=== PATIENT | male | born 1960 | race Caucasian/White ===

== ENCOUNTER 2018-08-04 14:34 | Emergency (ER) | payer SELFPAY ==
[2018-08-04] MEDS ORDERED: NA CHLORIDE 0.9% 1,000 ML ONE (15:24)
[2018-08-04 15:45] LABS: Absolute Lymphocytes (CBC) 2.5 K/uL (0.7-4.9); Absolute Neutrophil 4.9 K/uL (1.8-8.0); Basophils % 0.6 % (0-1.3); Eosinophils % 1.3 % (0-4.4); Hematocrit 43.3 % (39.6-49.0); Lymphocytes % 29.5 % (15.3-44.8); MPV 9.2 fL (7.6-11.3); Monocytes % 11.8 % (3.3-12.3); RBC Red Blood Cell Count 4.61 M/uL (4.33-5.43)
[2018-08-04 16:01] LABS: ALT/SGPT 21 U/L (12-78); AST/SGOT 15 U/L (15-37); Albumin 3.6 g/dL (3.4-5.0); Alkaline Phosphatase 79 U/L (45-117); BUN Blood Urea Nitrogen 13 mg/dL (7-18); Bicarbonate 27 mmol/L (21-32); Bilirubin Direct < 0.1 mg/dL (0-0.2); Bilirubin Total 0.3 mg/dL (0.2-1.0); Glucose Level 90 mg/dL (74-106); Lipase 185 U/L (73-393); Magnesium 2.4 mg/dL (1.8-2.4); NT PRO-BNP 138 pg/mL (<125); Protein, Total 7.3 g/dL (6.4-8.2); Sodium Level 141 mmol/L (136-145); Troponin (Emerg Dept Use Only) < 0.02 ng/mL (0.0-0.045)
[2018-08-04] MEDS ORDERED: FOLIC ACID 5 MG/ML VIAL ONE (16:51)
[2018-08-04] MEDS ORDERED: NA CHLORIDE 0.9% 50 ML IV ONE (16:53)
--- NOTE | 2018-08-04 17:18 | EKG ---
Test Date: 2018-08-04 Test Time: 14:53:56 Chamber Worker: FRANCINE MEASUREMENT RESULTS: Intervals: Rate: 61 OH: 162 QRSD: 86 QT: 426 QTc: 428 Tuttle: P: 32 OH: 162 QRS: 62 T: 50 INTERPRETIVE STATEMENTS: Normal sinus rhythm Normal ECG No previous ECG available for comparison Electronically Signed On 08-04-18 17:17:11 CDT by Bird Seymour
--- NOTE | 2018-08-04 17:55 | RAD REPORT ---
EXAM DESCRIPTION: MRI - Brain Wo Cont - 08/04/2018 5:34 pm CLINICAL HISTORY: Numbness COMPARISON: none TECHNIQUE: Axial, sagittal, and coronal magnetic images of the brain were obtained. Contrast was not requested FINDINGS: No significant abnormal signal is present within the brain. Diffusion-weighted/ADC mapping does not reveal evidence of acute infarction. The ventricles are normal caliber. An extra-axial fluid collection is not present The sinuses and mastoids are clear. IMPRESSION: No acute abnormality displayed
--- NOTE | 2018-08-04 18:05 | RAD REPORT ---
EXAM DESCRIPTION: MRI - C Spine Wo Cont - 08/04/2018 5:35 pm CLINICAL HISTORY: Bilateral arm numbness COMPARISON: None TECHNIQUE: Magnetic resonance imaging of the cervical spine was obtained with coronal and sagittal r econstruction FINDINGS: C2-3 unremarkable Disc bulge and osteophytes C3-4 result in narrowing of the thecal sac 9.5 millimeters. Moderate to ma rked narrowing of the left neural foramina and moderate narrowing the right neural foramina Disc bulge and osteophytes C4-5. Mild narrowing of the thecal sac. Moderate to marked narrowing left neural foramina. Moderate narrowing the right neural foramina Disc bulge and osteophytes narrow thecal sac at C5-6 to 8 millimeters. Moderate narrowing of the left and mild narrowing of the right neural foramina Disc bulge and osteophytes narrow the thecal sac a 9 millimeters C6-7. Neural foramina patent C7-T1 demonstrates mild spondylosis The spinal cord is normal caliber and signal. No abnormal signal within the bones is noted. IMPRESSION: Spondylosis resulting in mild central spinal stenosis C3-4, C5-6 and C6-7. Spondylosis results in a moderate to marked foraminal stenosis C3-4 and C5-6
[2018-08-04 18:19] LABS: Urine Blood NEGATIVE (NEG); Urine Glucose NEGATIVE (NEG); Urine Protein NEGATIVE (NEG); Urine Specific Gravity 1.015 (1.005-1.030); Urine pH 7.5 (5.0-7.0)
--- NOTE | 2018-08-04 18:19 | RAD REPORT ---
EXAM DESCRIPTION: Alpesh Single View08/04/2018 3:11 pm CLINICAL HISTORY: cough COMPARISON: none FINDINGS: The lungs appear clear of acute infiltrate. The heart is normal size IMPRESSION: No acute abnormalities displayed
--- NOTE | 2018-08-04 18:34 | ER ---
Nurse's Notes [facility] Name: Logan Ma Age: 58 yrs Sex: Male : 1960 Arrival Date: 08/04/2018 Time: 14:37 Bed 26 Private MD: Diagnosis: Chest pain, unspecified Presentation: 08/04 14:53 Presenting complaint: Patient states: Patient reports intermittent tingling and ae4 numbness starting at his left shoulder and radiating to chest. Transition of care: patient was not received from another setting of care. Onset of symptoms was August 04, 2018 at 10:00. Risk Assessment: Do you want to hurt yourself or someone else? Patient reports no desire to harm self or others. Initial Sepsis Screen: Does the patient meet any 2 criteria? No. Patient's initial sepsis screen is negative. Does the patient have a suspected source of infection? No. Patient's initial sepsis screen is negative. Care prior to arrival: None. 14:53 Acuity: JAYDA 3 ae4 14:53 Method Of Arrival: Ambulatory ae4 Triage Assessment: 14:57 Pain: Denies pain. ae4 Historical: - Allergies: 14:56 No Known Allergies; ae4 - Home Meds: 14:56 None [Active]; ae4 - PMHx: 14:56 None; ae4 - PSHx: 14:56 shoulder surgery; ae4 - Immunization history:: Adult Immunizations up to date. - Social history:: Smoking status: Patient/guardian denies using tobacco. - Ebola Screening: : Patient negative for fever greater than or equal to 101.5 degrees Fahrenheit, and additional compatible Ebola Virus Disease symptoms Patient denies exposure to infectious person Patient denies travel to an Ebola-affected area in the 21 days before illness onset. - Family history:: not pertinent. Screenin:57 Abuse screen: Denies threats or abuse. Nutritional screening: No deficits noted. ae4 Tuberculosis screening: No symptoms or risk factors identified. Fall Risk None identified. Assessment: 14:57 General: Appears in no apparent distress. comfortable, Behavior is calm, cooperative. ae4 Pain: Denies pain. Neuro: Level of Consciousness is awake, alert, obeys commands, Oriented to person, place, time, situation, Appropriate for age. Cardiovascular: Heart tones S1 S2 present Patient's skin is warm and dry. Rhythm is regular. Respiratory: Airway is patent Respiratory effort is even, unlabored, Respiratory pattern is regular, symmetrical, Breath sounds are clear bilaterally. GI: No signs and/or symptoms were reported involving the gastrointestinal system. : No signs and/or symptoms were reported regarding the genitourinary system. EENT: No signs and/or symptoms were reported regarding the EENT system. Derm: Skin is pink, warm \T\ dry. Musculoskeletal: No signs and/or symptoms reported regarding the musculoskeletal system. No visible swelling to JACK lower extremities. 15:56 Reassessment: Patient appears in no apparent distress at this time. Patient and/or ca1 family updated on plan of care and expected duration. Pain level reassessed. Patient is alert, oriented x 3, equal unlabored respirations, skin warm/dry/pink. 17:28 Reassessment: patient sent to MRI. mg2 17:57 Reassessment: patient sent back from mri. mg2 18:47 Reassessment: patient up for discharge once 2nd troponin came back negative. mg2 21:00 Reassessment: Patient appears in no apparent distress at this time. Patient is alert, ca1 oriented x 3, equal unlabored respirations, skin warm/dry/pink. Vital Signs: 14:52 BP 151 / 86; Pulse 62; Resp 19; Temp 98.4(O); Pulse Ox 99% on R/A; Weight 92.99 kg (R); ae4 15:56 BP 121 / 94; Pulse 74; Resp 19 S; Pulse Ox 100% on R/A; ca1 17:57 Pulse 87; Resp 18; Pulse Ox 98% on R/A; Pain 0/10; mg2 19:00 BP 142 / 87; Pulse 69; Resp 18; Temp 98; Pulse Ox 100% on R/A; Pain 0/10; mg2 21:00 BP 107 / 80; Pulse 61; Resp 18; Pulse Ox 98% ; ca1 NIH Stroke Scale Scores: 16:32 NIHSS Score: 0 masoud ED Course: 14:37 Patient arrived in ED. tw3 14:52 Christian Christian, RN is Primary Nurse. ae4 14:54 Triage completed. ae4 14:56 Placed in gown. Bed in low position. Call light in reach. Side rails up X 1. Adult w/ ae4 patient. campus monitor on. Pulse ox on. NIBP on. Warm blanket given. 14:57 Geremias Lam MD is Attending Physician. masoud 14:57 Arm band placed on right wrist. EKG completed in triage. Results shown to MD. ae4 15:11 XRAY Chest (1 view) In Process Unspecified. EDMS 15:24 Initial lab(s) drawn, by me, sent to lab. Inserted saline lock: 20 gauge in left lt1 antecubital area, using aseptic technique. 15:56 No provider procedures requiring assistance completed. ca1 17:10 C Spine Wo Cont In Process Unspecified. EDMS 17:11 Patient moved to MRI via wheelchair. ka 17:31 Brain Wo Cont MRI In Process Unspecified. EDMS 17:47 MRI completed. Patient tolerated well. Patient moved back from MRI. ka 18:56 Dannie Humphreys MD is Hospitalizing Provider. masoud 20:34 Attending Physician role handed off by Geremias Lam MD ma2 20:34 Brina Davis MD is Attending Physician. ma2 21:08 IV discontinued, intact, bleeding controlled, No redness/swelling at site. Pressure ca1 dressing applied. Administered Medications: 15:31 Drug: NS 0.9% 1000 ml Route: IV; Rate: 125 ml/hr; Site: left antecubital; mg2 21:02 Follow up: Response: Pt discharged ca1 21:10 Follow up: IV Status: Completed infusion ca1 16:42 Drug: foLIC Acid 1 mg Route: IVPB; Site: left antecubital; mg2 21:09 Follow up: Response: No adverse reaction; IV Status: Completed infusion ca1 18:47 Drug: Aspirin 162 mg Route: PO; mg2 21:01 Follow up: Response: No adverse reaction ca1 19:07 Drug: Lopressor 25 mg Route: PO; mg2 21:01 Follow up: Response: No adverse reaction ca1 19:07 Drug: Lovenox 90 mg Route: Sub-Q; Site: right upper arm; mg2 21:01 Follow up: Response: No adverse reaction ca1 Outcome: 18:33 Discharge ordered by . masoud 18:59 Decision to Hospitalize by Provider. masoud 20:44 Discharge ordered by . ma2 21:08 Discharged to home ambulatory, with significant other. ca1 21:08 Condition: stable 21:08 Discharge instructions given to patient, Instructed on discharge instructions, follow up and referral plans. Demonstrated understanding of instructions, follow-up care. 21:15 Patient left the ED. ca1 NIH Stroke Scale - NIH Stroke Score Date: 08/04/2018 Time: 16:32 Total Score = 0 1a. Level of Consciousness (LOC) - 0(Alert) 1b. Level of Consciousness (LOC) (Year \T\ Age) - 0(Both) 1c. LOC Commands (Open \T\ Closes Eyes/As400 Administrator) - 0(Both) 2. Best Gaze (Lateral Gaze Paresis) - 0(Normal) 3. Visual Field Loss - 0(No visual loss) 4. Facial Palsy - 0(Normal) 5a. Left Arm: Motor (10-second hold) - 0(No drift) 5b. Right Arm: Motor (10-second hold) - 0(No drift) 6a. Left Leg: Motor (5-second hold - always test supine) - 0(No drift) 6b. Right Leg: Motor (5-second hold - always test supine) - 0(No drift) 7. Limb Ataxia (finger/nose \T\ heel/wall - test with eyes open) - 0(Absent) 8. Sensory Loss (pinprick arms/legs/face) - 0(Normal) 9. Best Language: Aphasia (description/naming/reading) - 0(No aphasia) 10. Dysarthria (speech clarity - read or repeat words) - 0(Normal) 11. Extinction and Inattention (visual/tactile/auditory/spatial/personal) - 0(No abnormality) Initials: masoud Signatures: Dispatcher [employer] EDGeremias Pelletier MD MD cha Aguilera, Katelyn ka Wade, Tia tw3 Brina Davis MD MD ma2 Raymond Ivan, FOREST GARG mg2 Denise Braga RN RN ca1 Chiqui Gómez lt1 Christian Christian RN RN ae4 Corrections: (The following items were deleted from the chart) 21:00 21:00 Reassessment: Patient appears in no apparent distress at this time. ca1 Patient and/or family updated on plan of care and expected duration. Pain level reassessed. Patient is alert, oriented x 3, equal unlabored respirations, skin warm/dry/pink. ca1
--- NOTE | 2018-08-04 18:34 | EDPHYS ---
Physician Documentation [facility] Name: Logan Ma Age: 58 yrs Sex: Male : 1960 Arrival Date: 08/04/2018 Time: 14:37 Bed 26 Private MD: ED Physician Brina Davis HPI: 08/04 16:32 This 58 yrs old Male presents to ER via Ambulatory with complaints of masoud Numbness Of Arm, Numbness. 16:32 The patient or guardian complains of decreased range of motion, pain, that is acute. masoud The complaints affect the right bicep, dorsal aspect of right forearm, right tricep and palmar aspect of right forearm, left bicep, dorsal aspect of left forearm, left tricep and palmar aspect of left forearm. Context: The problem was sustained at home. Onset: The symptoms/episode began/occurred. Treatment prior to arrival includes: no previous treatment. Modifying factors: The symptoms are alleviated by nothing. the symptoms are aggravated by nothing. Associated signs and symptoms: The patient has no apparent associated signs or symptoms. The patient has not experienced similar symptoms in the past. Historical: - Allergies: 14:56 No Known Allergies; ae4 - Home Meds: 14:56 None [Active]; ae4 - PMHx: 14:56 None; ae4 - PSHx: 14:56 shoulder surgery; ae4 - Immunization history:: Adult Immunizations up to date. - Social history:: Smoking status: Patient/guardian denies using tobacco. - Ebola Screening: : Patient negative for fever greater than or equal to 101.5 degrees Fahrenheit, and additional compatible Ebola Virus Disease symptoms Patient denies exposure to infectious person Patient denies travel to an Ebola-affected area in the 21 days before illness onset. - Family history:: not pertinent. ROS: 16:32 Constitutional: Negative for fever, chills, and weight loss, Eyes: Negative for injury, masoud pain, redness, and discharge, ENT: Negative for injury, pain, and discharge, Neck: Negative for injury, pain, and swelling, Cardiovascular: Negative for chest pain, palpitations, and edema, Respiratory: Negative for shortness of breath, cough, wheezing, and pleuritic chest pain, Abdomen/GI: Negative for abdominal pain, nausea, vomiting, diarrhea, and constipation, Back: Negative for injury and pain, : Negative for injury, bleeding, discharge, and swelling, MS/Extremity: Negative for injury and deformity, Skin: Negative for injury, rash, and discoloration. 16:32 Neuro: Positive for numbness, of the back, chest, abdomen, right arm and left arm. Exam: 16:32 Constitutional: This is a well developed, well nourished patient who is awake, alert, masoud and in no acute distress. Head/Face: Normocephalic, atraumatic. Eyes: Pupils equal round and reactive to light, extra-ocular motions intact. Lids and lashes normal. Conjunctiva and sclera are non-icteric and not injected. Cornea within normal limits. Periorbital areas with no swelling, redness, or edema. ENT: Nares patent. No nasal discharge, no septal abnormalities noted. Tympanic membranes are normal and external auditory canals are clear. Oropharynx with no redness, swelling, or masses, exudates, or evidence of obstruction, uvula midline. Mucous membranes moist. Neck: Trachea midline, no thyromegaly or masses palpated, and no cervical lymphadenopathy. Supple, full range of motion without nuchal rigidity, or vertebral point tenderness. No Meningismus. Chest/axilla: Normal chest wall appearance and motion. Nontender with no deformity. No lesions are appreciated. Cardiovascular: Regular rate and rhythm with a normal S1 and S2. No gallops, murmurs, or rubs. Normal PMI, no JVD. No pulse deficits. Respiratory: Lungs have equal breath sounds bilaterally, clear to auscultation and percussion. No rales, rhonchi or wheezes noted. No increased work of breathing, no retractions or nasal flaring. Abdomen/GI: Soft, non-tender, with normal bowel sounds. No distension or tympany. No guarding or rebound. No evidence of tenderness throughout. Back: No spinal tenderness. No costovertebral tenderness. Full range of motion. Male : Normal genitalia with no discharge or lesions. Skin: Warm, dry with normal turgor. Normal color with no rashes, no lesions, and no evidence of cellulitis. MS/ Extremity: Pulses equal, no cyanosis. Neurovascular intact. Full, normal range of motion. Neuro: Awake and alert, GCS 15, oriented to person, place, time, and situation. Cranial nerves II-XII grossly intact. Motor strength 5/5 in all extremities. Sensory grossly intact. Cerebellar exam normal. Normal gait. Psych: Awake, alert, with orientation to person, place and time. Behavior, mood, and affect are within normal limits. Vital Signs: 14:52 BP 151 / 86; Pulse 62; Resp 19; Temp 98.4(O); Pulse Ox 99% on R/A; Weight 92.99 kg (R); ae4 15:56 BP 121 / 94; Pulse 74; Resp 19 S; Pulse Ox 100% on R/A; ca1 17:57 Pulse 87; Resp 18; Pulse Ox 98% on R/A; Pain 0/10; mg2 19:00 BP 142 / 87; Pulse 69; Resp 18; Temp 98; Pulse Ox 100% on R/A; Pain 0/10; mg2 21:00 BP 107 / 80; Pulse 61; Resp 18; Pulse Ox 98% ; ca1 NIH Stroke Scale Scores: 16:32 NIHSS Score: 0 masoud MDM: 14:57 Patient medically screened. [facility] 16:37 Data reviewed: vital signs, nurses notes, lab test result(s), EKG, radiologic studies, masoud CT scan, MRI, plain films. 20:37 ED course: patient ended up staying in er for > 3 hrs and got repeated trop and ekg ma2 both wnl, he is hung score of zero no need for further testing, either way the only symptoms he had was left shoulder numbness and neck pain MRI shows no cord compression or any emergent surgical indication, his symptom is resolved. Hospitalis dr. Castillo recommends against further ACS rule out testing such as emergent rent and miscellaneous remittance clerk consult or further trop/ekg testing and i agree with dr. castillo recommendation. i discussed these recommendation with the patient who prefers to go home he will see his pcp tomorrow and he will schedule an appointment with a [place] rent and miscellaneous remittance clerk in 2 days. he will return to er for any new symptoms . 08/04 14:58 Order name: Basic Metabolic Panel [facility] 08/04 14:58 Order name: CBC with Diff [facility] 08/04 14:58 Order name: LFT's [facility] 08/04 14:58 Order name: Magnesium; Complete Time: 16:11 [facility] 08/04 14:58 Order name: NT PRO-BNP; Complete Time: 16:11 [facility] 08/04 14:58 Order name: PT-INR; Complete Time: 16:11 [facility] 08/04 14:58 Order name: Troponin (emerg Dept Use Only); Complete Time: 16:11 [facility] 08/04 14:58 Order name: Lipase; Complete Time: 16:11 [facility] 08/04 15:00 Order name: Basic Metabolic Panel; Complete Time: 16:11 EDPR 08/04 15:00 Order name: CBC with Automated Diff; Complete Time: 16:11 EDPR 08/04 15:00 Order name: Liver (Hepatic) Function; Complete Time: 16:11 EDMS 08/04 17:18 Order name: Urine Dipstick--Ancillary (enter results) 08/04 18:34 Order name: Troponin (emerg Dept Use Only): 640pm; Complete Time: 20:16 [facility] 08/04 14:58 Order name: XRAY Chest (1 view); Complete Time: 18:33 [facility] 08/04 14:58 Order name: EKG; Complete Time: 15:01 [facility] 08/04 14:58 Order name: Cardiac monitoring; Complete Time: 15:26 [facility] 08/04 14:58 Order name: EKG - Nurse/Tech; Complete Time: 15:26 [facility] 08/04 14:58 Order name: IV Saline Lock; Complete Time: 15:25 [facility] 08/04 14:58 Order name: Labs collected and sent; Complete Time: 15:25 [facility] 08/04 14:58 Order name: O2 Per Protocol; Complete Time: 15:25 [facility] 08/04 14:58 Order name: O2 Sat Monitoring; Complete Time: 15:25 [facility] 08/04 14:58 Order name: Urine Dipstick-Ancillary (obtain specimen); Complete Time: 17:29 [facility] 08/04 16:32 Order name: Brain Wo Cont MRI; Complete Time: 18:33 [facility] 08/04 16:38 Order name: C Spine Wo Cont; Complete Time: 18:33 EDMS Administered Medications: 15:31 Drug: NS 0.9% 1000 ml Route: IV; Rate: 125 ml/hr; Site: left antecubital; mg2 21:02 Follow up: Response: Pt discharged ca1 21:10 Follow up: IV Status: Completed infusion ca1 16:42 Drug: foLIC Acid 1 mg Route: IVPB; Site: left antecubital; mg2 21:09 Follow up: Response: No adverse reaction; IV Status: Completed infusion ca1 18:47 Drug: Aspirin 162 mg Route: PO; mg2 21:01 Follow up: Response: No adverse reaction ca1 19:07 Drug: Lopressor 25 mg Route: PO; mg2 21:01 Follow up: Response: No adverse reaction ca1 19:07 Drug: Lovenox 90 mg Route: Sub-Q; Site: right upper arm; mg2 21:01 Follow up: Response: No adverse reaction ca1 Disposition: 08/04/18 20:44 Discharged to Home. Impression: Chest pain, unspecified. - Condition is Stable. - Discharge Instructions: Nonspecific Chest Pain. - Medication Reconciliation Form, Thank You Letter, Antibiotic Education, Prescription Opioid Use form. - Follow up: Private Physician; When: Tomorrow; Reason: Continuance of care. - Notes: seeyour primary care doctor and acardiologist for a stress test in 1-2 days NIH Stroke Scale - NIH Stroke Score Date: 08/04/2018 Time: 16:32 Total Score = 0 1a. Level of Consciousness (LOC) - 0(Alert) 1b. Level of Consciousness (LOC) (Year \T\ Age) - 0(Both) 1c. LOC Commands (Open \T\ Closes Eyes/Screedman) - 0(Both) 2. Best Gaze (Lateral Gaze Paresis) - 0(Normal) 3. Visual Field Loss - 0(No visual loss) 4. Facial Palsy - 0(Normal) 5a. Left Arm: Motor (10-second hold) - 0(No drift) 5b. Right Arm: Motor (10-second hold) - 0(No drift) 6a. Left Leg: Motor (5-second hold - always test supine) - 0(No drift) 6b. Right Leg: Motor (5-second hold - always test supine) - 0(No drift) 7. Limb Ataxia (finger/nose \T\ heel/wall - test with eyes open) - 0(Absent) 8. Sensory Loss (pinprick arms/legs/face) - 0(Normal) 9. Best Language: Aphasia (description/naming/reading) - 0(No aphasia) 10. Dysarthria (speech clarity - read or repeat words) - 0(Normal) 11. Extinction and Inattention (visual/tactile/auditory/spatial/personal) - 0(No abnormality) Initials: masoud Signatures: Dispatcher [employer] EDPR Geremias Lam MD MD cha Alzahri, Mohammad, MD MD ma2 Raymond Ivan, RN RN mg2 Denise Braga RN RN ca1 Christian Christian RN RN ae4 Corrections: (The following items were deleted from the chart) 18:45 18:38 TROPONIN (EMERG DEPT USE ONLY)+[id number].[email or web address].BRZ ordered. [facility] EDPR 18:56 18:33 08/04/2018 18:33 Discharged to Home. Impression: Spinal stenosis, masoud cervical region; Spondylolysis, cervical region. Condition is Stable. Forms are Medication Reconciliation Form, Thank You Letter, Antibiotic Education, Prescription Opioid Use. Follow up: Private Physician; When: 2 - 3 days; Reason: Recheck today's complaints, Continuance of care, Re-evaluation by your physician. Problem is new. Symptoms have improved. [facility] 20:43 18:59 Hospitalization Ordered by Dannie Humphreys MD for Observation. Preliminary ma2 diagnosis is Chest pain, unspecified; Essential (primary) hypertension. Bed requested for Telemetry/MedSurg (Inpatient). Status is Observation. Condition is Stable. Problem is new. Symptoms have improved. UTI on Admission? No. masoud 20:43 20:43 08/04/2018 18:59 Hospitalization Ordered by Dannie Humphreys MD for ma2 Observation. Preliminary diagnosis is Chest pain, unspecified; Essential (primary) hypertension. Bed requested for Telemetry/MedSurg (Inpatient). Status is Observation. Condition is Stable. Problem is new. Symptoms have improved. UTI on Admission? No. ma2 21:15 20:44 08/04/2018 20:44 Discharged to Home. Impression: Chest pain, unspecified. ca1 Condition is Stable. Forms are Medication Reconciliation Form, Thank You Letter, Antibiotic Education, Prescription Opioid Use. Follow up: Private Physician; When: Tomorrow; Reason: Continuance of care. ma2
[2018-08-04] MEDS ORDERED: ASPIRIN EC 81 MG TAB PO ONE (18:53)
[2018-08-04] MEDS ORDERED: ENOXAPARIN 100 MG/ML SYR SQ ONE (19:17)
[2018-08-04] MEDS ORDERED: METOPROLOL TAR 25 MG TAB ONE (19:17)
--- NOTE | 2018-08-04 20:59 | P.CNS ---
Date of Consult: 08/04/18 Reason for Consult: atypical chest pain Requesting Physician: Geremias Lam Chief Complaint: left shoulder, arm and chest numbness History of Present Illness: Mr Ma is a 58 years old male with pretty benign past medical history, he start 2 days ago with tingling in his left shoulder. His symptoms got worse today, and become numbness extended to the chest. He denied nausea, vomiting, SOB, diaphoresis episode. He denied chest pain. He states that after crack his neck, his symptoms started. Lab work revealed normal trop I x 2, EKG sinus rhythm without ST-T abnormalities. At my encounter, his symptoms remain the same without change. Home medications list reviewed: Yes - Past Medical/Surgical History Past Medical History: Reviewed- Non-Contributory Past Surgical History: Reviewed- Non-Contributory - Social History Smoking Status: Never smoker CD- Drugs: No Place of Residence: Home Review of Systems 10-point ROS is otherwise unremarkable Physical Examination General: Alert, In no apparent distress HEENT: Atraumatic, PERRLA, Mucous membr. moist/pink, EOMI, Sclerae nonicteric Neck: Supple, 2+ carotid pulse no bruit, No LAD, Without JVD or thyroid abnormality Respiratory: Clear to auscultation bilaterally, Normal air movement Cardiovascular: Regular rate/rhythm, Normal S1 S2 Gastrointestinal: Normal bowel sounds, No tenderness Musculoskeletal: No tenderness Integumentary: No rashes Neurological: Normal speech, Normal tone, Normal affect, Abnormal sensation ( chest, left shoulder numbness) Lymphatics: No axilla or inguinal lymphadenopathy Laboratory Data (last 24 hrs) 08/04/18 15:22: PT 11.8, INR 1.00 08/04/18 15:22: WBC 8.6, Hgb 14.3, Hct 43.3, Plt Count 223 08/04/18 15:22: Sodium 141, Potassium 4.0, BUN 13, Creatinine 1.26, Glucose 90, Magnesium 2.4, Total Bilirubin 0.3, AST 15, ALT 21, Alkaline Phosphatase 79, Lipase 185 - Problems (1) Numbness and tingling in left arm Current Visit: Yes Status: Acute (2) Foraminal stenosis of cervical region Current Visit: Yes Status: Acute Conclusions/Impression: MRI of the brain was unremarkable. Cervical MRI, shows Spondylosis resulting in mild central spinal stenosis C3-4, C5-6 and C6-7. I think the patient needs to be evaluted by neurosurgeon. No signs of ACS at the moment. Thanks for the consult.
== END 2018-08-04 21:15 | disposition home or self-care (01) ==
LOC: ER 14:34
DX: R07.9 Chest pain, unspecified (principal)
CPT/HCPCS: 36415; 70551; 71045; 72141; 80048; 80076; 81003; 83690; 83735; 83880; 84484; 85025; 85610; 93005; 96361; 96365; 96366; 96372; 99285; J1650; J7030